=== PATIENT | male | born 1990 | race American Indian/Alaskan Native ===

== ENCOUNTER 2017-02-04 01:53 | Emergency (ER) | payer MEDICAID, OTHER ==
[2017-02-04 02:04] VITALS: RESP 16; TEMP 98
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
[2017-02-04 02:43] VITALS: BP 128/84; PULSE 88; O2SAT 97
== END 2017-02-04 02:57 ==
LOC: H.ER 01:53
DX: F41.9 Anxiety disorder, unspecified (principal); F12.10 Cannabis abuse, uncomplicated; F10.10 Alcohol abuse, uncomplicated

== ENCOUNTER 2018-05-18 11:06 | Emergency (ER) | payer SELFPAY ==
[2018-05-18 11:10] VITALS: BMI 24.3
--- NOTE | 2018-05-18 13:39 | ED PDOC ---
HPI: Psych/Substance Abuse Time Seen by Provider: 05/18/18 11:23 Chief Complaint (Nursing): Medical Clearance History Per: Patient Additional Complaint(s): Pt. brought in by PD for medical/psychiatric clearance. Pt. states immediately after getting arrested he developed an anxiety attack. Reports feeling anxious, having mid-sternal chest pain, and palpitations. Has a hx of anxiety and symptoms are the same. Pt. states he usually takes Xanax for anxiety. States he did not take xanax today. Denies SI/HI, hallucinations, SOB, leg pain, cough, hemoptysis, fever, abd pain, trauma, chest trauma. Past Medical History Reviewed: Historical Data, Nursing Documentation, Vital Signs Vital Signs: Last Vital Signs Temp 97.1 F L 05/18/18 11:09 Pulse 81 05/18/18 11:09 Resp 22 05/18/18 11:09 BP 112/74 05/18/18 11:09 Pulse Ox 100 05/18/18 11:09 - Medical History PMH: Anxiety Denies: Chronic Kidney Disease - Family History Family History: States: No Known Family Hx - Social History Drugs: Denies - Home Medications Home Medications: Ambulatory Orders Medication Instructions Recorded No Known Home Med 10/08/16 - Allergies Allergies/Adverse Reactions: Allergies Allergy/AdvReac Type Severity Reaction Status Date / Time Penicillins Allergy RASH Verified 05/18/18 11:16 Review of Systems ROS Statement: Except As Marked, All Systems Reviewed And Found Negative Cardiovascular: Positive for: Chest Pain Psych: Positive for: Anxiety Physical Exam - Physical Exam Appears: Positive for: Well, Non-toxic, No Acute Distress Skin: Positive for: Normal Color, Warm. Negative for: Rash Eye Exam: Positive for: Normal appearance Cardiovascular/Chest: Positive for: Regular Rate, Rhythm. Negative for: Tachycardia Respiratory: Positive for: Normal Breath Sounds. Negative for: Respiratory Distress Gastrointestinal/Abdominal: Positive for: Normal Exam, Soft. Negative for: Tenderness Back: Positive for: Normal Inspection Neurologic/Psych: Positive for: Alert, Oriented (x3), Mood/Affect (appears anxious but is cooperative). Negative for: Aphasia, Facial Droop - ECG ECG: Positive for: Interpreted By Me ECG Rhythm: Positive for: Sinus Rhythm. Negative for: ST/T Changes Rate: 69 O2 Sat by Pulse Oximetry: 100 - Progress ED Course And Treament: Xanax 1mg PO, EKG ordered. 1341 On re-evaluation, pt. reports feeling much better. Reports good relief of chest pain, palpitations, and anxiety. Denies SI/HI, hallucinations. Disposition - Clinical Impression Clinical Impression: Anxiety - Patient ED Disposition Is Patient to be Admitted: No - Disposition Referrals: [facility] [Outside] Disposition: Routine/Home Disposition Time: 13:42 Condition: IMPROVED Additional Instructions: PATIENT IS MEDICALLY AND PSYCHIATRICALLY CLEARED FOR INCARCERATION SAVITA LAMBERT, thank you for letting us take care of you today. Your provider was Maribeth Tamez MD and you were treated for MED CLEARANCE. The emergency medical care you received today was directed at your acute symptoms. If you were prescribed any medication, please fill it and take as directed. It may take several days for your symptoms to resolve. Return to the Emergency Department if your symptoms worsen, do not improve, or if you have any other problems. Please contact your doctor or call one of the physicians/clinics you have been referred to that are listed on the Patient Visit Information form that is included in your discharge packet. Bring any paperwork you were given at discharge with you along with any medications you are taking to your follow up visit. Our treatment cannot replace ongoing medical care by a primary care provider outside of the emergency department. Thank you for allowing the [facility] team to be part of your care today. If you had an X-Ray or CT scan: A Radiologist will review the ED reading if any change in treatment is needed we will contact you. If you had a blood, urine, or wound culture: It will take several days for the results, if any change in treatment is needed we will contact you. If you had an STI test: It will take 48 hours for the results. Please call after 1 week if you have not heard back. Instructions: Anxiety, Adult (DC) Print Language: ICELANDIC
[2018-05-18 14:07] VITALS: BP 116/89; PULSE 104; RESP 16; TEMP 97.6; O2SAT 99
--- NOTE | 2018-05-19 07:15 | CARD ---
APPROVED REPORT Date of service: 05/18/2018 EKG Measurement Heart [id number] <Conclusion> Normal sinus rhythm Normal ECG
== END 2018-05-18 14:07 ==
LOC: H.ER 11:06
DX: F41.9 Anxiety disorder, unspecified (principal); Z88.0 Allergy status to penicillin